=== PATIENT | female | born 1960 | race African-American/Black ===

== ENCOUNTER 2017-08-20 14:31 | Emergency (ER) | payer OTHER, SELFPAY ==
--- NOTE | 2017-08-20 16:11 | RAD ---
LEFT HIP 2 VIEWS: Date: 08/20/17 HISTORY: Pain. COMPARISON: None. FINDINGS: No acute fracture. No malalignment. Mild narrowing of the superolateral joint space. IMPRESSION: Mild osteoarthritic disease. POS: [facility]
== END 2017-08-20 16:25 | disposition home or self-care (01) ==
LOC: MADERS 14:31
DX: S76.012A Strain of muscle, fascia and tendon of left hip, initial encounter (principal); I10 Essential (primary) hypertension; Z79.899 Other long term (current) drug therapy; X58.XXXA Exposure to other specified factors, initial encounter

== ENCOUNTER 2020-08-05 09:07 | Outpatient (CLI) | payer OTHER ==
[2020-08-05 09:35] LABS: Anion Gap 14 mmol/L (10-20); BUN (Urea Nitrogen) 20 mg/dL (9.8-20.1); Calc. Creatinine Clearance 0 mL/min (70-130); Carbon Dioxide 25 mmol/L (22-29); Chloride 109 mmol/L (98-107); Glucose 99 mg/dL (70-105); Phosphorus 2.7 mg/dL (2.3-4.7); Potassium 4.5 mmol/L (3.5-5.1); Sodium 143 mmol/L (136-145)
[2020-08-05 09:40] LABS: #Basophils 0.1 thou/uL (0.0-0.2); #Eosinphils 0.2 thou/uL (0.0-0.7); #Lymphocytes 2.4 thou/uL (1.20-3.40); #Monocytes 0.2 thou/uL (0.11-0.59); #Neutrophils 2.9 thou/uL (1.40-6.50); %Basophils 1.4 % (0.0-1.0); %Lymphocytes 41.6 % (21.0-51.0); %Monocytes 3.6 % (0.0-10.0); %Neutrophils 50.4 % (42.0-75.0); Hemoglobin 10.9 g/dL (12.0-16.0); Mean Corpuscular HGB CONC 29.7 g/dL (32.0-36.0); Mean Corpuscular Hemoglobin 25.2 pg (27.0-31.0); Mean Corpuscular Volume 85.1 fL (78.0-98.0); Mean Platelet Volume 7.9 fL (7.4-10.4); Platelet Count 239 thou/uL (130-400); RBC Distribution Width 14.1 % (11.5-14.5); Red Blood Cell (RBC) Count 4.33 mill/uL (4.20-5.40); White Blood Cell (WBC) Count 5.8 thou/uL (4.8-10.8)
[2020-08-05 17:07] LABS: Iron 50 ug/dL (50-170); Iron Binding Capacity, Total 310 mcg/dL (265-497)
[2020-08-05 17:25] LABS: Ferritin 78.94 ng/mL (10-291)
[2020-08-05 17:30] LABS: Vitamin D, 25 Hydroxy 8.1 ng/ml (> 30.0)
[2020-08-06 17:02] LABS: ANA Symphony (Qualitative) Negative (Negative); ANA Symphony (Quantitative) 0.2 Ratio (< 0.7 Negative); dsDNA IgG Antibody 0.5 IU/mL (<10 Negative)
== END 2020-08-05 09:08 | disposition home or self-care (01) ==
LOC: MADLAB 09:07
PROVIDERS: ATTEND Internal Medicine Nephrology
DX: I12.9 Hypertensive chronic kidney disease with stage 1 through stage 4 chronic kidney disease, or unspecified chronic kidney disease (principal); N18.1 Chronic kidney disease, stage 1
CPT/HCPCS: 36415; 80048; 82085; 82306; 82728; 83540; 83550; 83970; 84100; 84244; 85025; 86038; 86225